=== PATIENT | female | born 1940 | race Asian ===

== ENCOUNTER 2021-08-25 14:20 | Inpatient (IN) | payer MEDICARE, OTHER ==
[~2021-08-25] VITALS: Ht 152.4 cm; Wt 59.0 kg
[2021-08-25] MEDS ORDERED: DILTIAZEM HCL 25 MG IV ONE ×2 (14:56→15:32)
[2021-08-25] MEDS ORDERED: IV NS 1000 ML 1,000 ML IV ONE (15:00)
[2021-08-25] MEDS ORDERED: DILTIAZEM HCL 25 MG IV IV ONE ×2 (15:00→15:15)
[2021-08-25 15:15] LABS: HEMATOCRIT 43.5 % (31.2-41.9); MEAN CORPUSCULAR HEMOGLOBIN 32.2 uug (24.7-32.8); MEAN CORPUSCULAR VOLUME 93.7 fL (75.5-95.3); PLATELET COUNT (AUTO) 295 K/uL (179-408)
[2021-08-25 15:27] LABS: CREATININE 1.1 mg/dL (0.6-1.3); POTASSIUM 3.2 mmol/L (3.5-5.1)
[2021-08-25 15:40] LABS: BILIRUBIN,TOTAL 0.3 mg/dL (0.2-1.0); TOTAL PROTEIN, SERUM 7.9 g/dL (6.4-8.2)
[2021-08-25 15:52] LABS: THYROID STIMULATING HORMONE 1.283 mIU/mL (0.358-3.740)
[2021-08-25] MEDS ORDERED: levETIRAcetam IV 500 MG in IV DEXTROSE 5% 100 ML IV ONE (16:30)
[2021-08-25] MEDS ORDERED: LORAZEPAM 2 MG/1 ML VIAL IV ONE (16:30)
[2021-08-25] MEDS ORDERED: MAGNESIUM HYDROXIDE 30 ML LIQUID UDC PO PRN (21:30)
[2021-08-25] MEDS ORDERED: ATORVASTATIN 20 MG TABLET PO SCH (21:30)
[2021-08-25] MEDS ORDERED: ONDANSETRON 4 MG/2 ML VIAL IV PRN (21:30)
[2021-08-25] MEDS ORDERED: IV NS 1000 ML 1,000 ML IV PRN (21:30)
[2021-08-25] MEDS ORDERED: PANTOPRAZOLE SODIUM 40 MG TABLET.DR PO SCH (21:30)
[2021-08-25] MEDS ORDERED: ACETAMINOPHEN 325 MG TABLET PO PRN (21:30)
[2021-08-25] MEDS ORDERED: Z GUARD REMEDY PASTE 57 GM TUBE TOP PRN (21:30)
[2021-08-25] MEDS ORDERED: ATORVASTATIN 40 MG TABLET ONE (23:31)
[2021-08-26 01:44] VITALS: BP 106/77
[2021-08-26 04:35] VITALS: BP 112/54
[2021-08-26] MEDS ORDERED: PANTOPRAZOLE SODIUM 40 MG TABLET.DR PO SCH (07:00)
[2021-08-26 07:17] LABS: HEMATOCRIT 40.5 % (31.2-41.9); MEAN CORPUSCULAR HEMOGLOBIN 32.3 uug (24.7-32.8); MEAN CORPUSCULAR VOLUME 94.4 fL (75.5-95.3); PLATELET COUNT (AUTO) 266 K/uL (179-408)
[2021-08-26 07:28] LABS: NEUTROPHILS % (MANUAL) 0 % (42-75)
[2021-08-26 07:40] LABS: MAGNESIUM 1.8 mg/dL (1.8-2.4); PHOSPHOROUS 3.1 mg/dL (2.5-4.9); POTASSIUM 3.2 mmol/L (3.5-5.1)
[2021-08-26] MEDS ORDERED: APIXABAN 5 MG TABLET PO SCH (09:00)
[2021-08-26] MEDS ORDERED: ASPIRIN 81 MG TAB.CHEW PO SCH (09:00)
[2021-08-26] MEDS ORDERED: METOPROLOL TARTRATE 25 MG TABLET PO SCH (09:00)
[2021-08-26] MEDS ORDERED: ENOXAPARIN SODIUM 40 MG/0.4 ML DISP.SYRIN SQ SCH (09:00)
[2021-08-26] MEDS ORDERED: METOPROLOL SUCCINATE XL 50 MG TAB.SR.24H PO SCH (09:00)
[2021-08-26] MEDS ORDERED: POTASSIUM CHLORIDE 20 MEQ TAB.PRT.SR PO ONE (09:30)
[2021-08-26 11:00] VITALS: BP 135/67
[2021-08-26 16:00] VITALS: BP 144/81
== END 2021-08-26 17:15 | disposition home or self-care (01) | DRG 308 ==
LOC: ER 14:20 → TELE3 18:15
PROVIDERS: ADMIT Nurse Practitioner Acute Care; ATTEND Nurse Practitioner Acute Care
DX: I48.0 Paroxysmal atrial fibrillation (principal); U07.1 COVID-19; E87.1 Hypo-osmolality and hyponatremia; E87.6 Hypokalemia; Z79.01 Long term (current) use of anticoagulants; E11.9 Type 2 diabetes mellitus without complications; E78.00 Pure hypercholesterolemia, unspecified; E78.5 Hyperlipidemia, unspecified; E86.0 Dehydration; I10 Essential (primary) hypertension
CPT/HCPCS: 36415; 70030-TC; 71045; 83605; 83615; 83690; 83735; 84100; 84443; 85025; 85730; 86140; 87040; 93005; A4663; G0378; J3490; J7030